=== PATIENT | female | born 2000 | race Caucasian/White ===

== ENCOUNTER 2019-03-16 05:08 | Emergency (ER) | payer OTHER ==
--- NOTE | 2019-03-16 05:30 | NUR ---
PT CALLED FOR TRIAGE AT THIS TIME AND NO ONE PRESENT IN WAITING ROOM. 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
== END 2019-03-16 05:30 | disposition left against medical advice (07) ==
LOC: ER 05:10
DX: N23 Unspecified renal colic (principal)